=== PATIENT | male | born 1970 | race Hispanic/Latino ===

== ENCOUNTER 2019-04-06 21:39 | Emergency (ER) | payer SELFPAY ==
[~2019-04-06] VITALS: Ht 172.7 cm; Wt 81.7 kg
== END 2019-04-06 22:54 | disposition home or self-care (01) ==
LOC: ED 21:39
DX: S09.90XA Unspecified injury of head, initial encounter (principal); Y04.0XXA Assault by unarmed brawl or fight, initial encounter
CPT/HCPCS: 70450; 99283-25

== ENCOUNTER 2020-01-22 09:27 | Emergency (ER) | payer OTHER ==
[~2020-01-22] VITALS: Ht 172.7 cm; Wt 81.7 kg
[2020-01-22] MEDS ORDERED: PEPCID20 MG PO (11:45)
--- NOTE | 2020-01-23 17:23 | EKG ---
[facility] [address] [facility] [place], [place] [address] Signed Normal sinus rhythm Right bundle branch block Left anterior fascicular block Bifascicular block Abnormal ECG No previous ECGs available Confirmed by CIERRA GAY DO ([id number]) on 01/23/2020 5:23:03 PM Electronically Signed By: CIERRA GAY DO 01/23/20 1723 PATIENT NAME: NOEMISYEDABIGAIL GODINEZ Electrocardiogram DATE OF : 66 PHYSICIAN: CIERRA GAY DO REPORT #: [id number] REPORT IS CONFIDENTIAL AND NOT TO BE RELEASED WITHOUT AUTHORIZATION
== END 2020-01-22 12:13 | disposition home or self-care (01) ==
LOC: ED 09:27
DX: K21.9 Gastro-esophageal reflux disease without esophagitis (principal)
CPT/HCPCS: 71046; 80048; 83880; 84484; 85025; 93005; 93010; 99285-25